=== PATIENT | female | born 1950 | race Caucasian/White ===

== ENCOUNTER → 2016-08-06 | Day surgery (SDC) | payer MEDICARE, OTHER ==
[~2016-08-06] VITALS: Ht 162.6 cm; Wt 105.2 kg
[~2016-08-06] MED LIST: AZITHROMYCIN 2250 MG PO; CEFDINIR300 MG PO; HCTZ25 MG PO; LASIX40 MG PO; METFORMIN HCL500 MG PO; METRONIDAZOLE500 MG PO; NEURONTIN400 MG PO; XANAX0.5 MG PO
== END | disposition home or self-care (01) ==
LOC: FAS 06:12
PROVIDERS: Anesthesiology
DX: Z12.11 Encounter for screening for malignant neoplasm of colon (principal); K63.5 Polyp of colon; K57.30 Diverticulosis of large intestine without perforation or abscess without bleeding; K21.9 Gastro-esophageal reflux disease without esophagitis; I10 Essential (primary) hypertension; E11.9 Type 2 diabetes mellitus without complications; E78.00 Pure hypercholesterolemia, unspecified; G40.909 Epilepsy, unspecified, not intractable, without status epilepticus; M32.9 Systemic lupus erythematosus, unspecified; M10.9 Gout, unspecified; G47.30 Sleep apnea, unspecified; F41.9 Anxiety disorder, unspecified; Z99.89 Dependence on other enabling machines and devices; Z90.710 Acquired absence of both cervix and uterus; Z90.722 Acquired absence of ovaries, bilateral; Z80.0 Family history of malignant neoplasm of digestive organs; Z86.73 Personal history of transient ischemic attack (TIA), and cerebral infarction without residual deficits; Z87.891 Personal history of nicotine dependence; Z79.84 Long term (current) use of oral hypoglycemic drugs; Z79.818 Long term (current) use of other agents affecting estrogen receptors and estrogen levels; Z79.899 Other long term (current) drug therapy; Z98.890 Other specified postprocedural states
CPT/HCPCS: 36415; 80048; 88305; J2704

== ENCOUNTER 2020-08-20 11:13 | Inpatient (IN) | payer MEDICARE, OTHER ==
[~2020-08-20] VITALS: Ht 162.6 cm; Wt 106.3 kg
[~2020-08-20 11:13] MED LIST changes: +ALLOPURINOL100 MG PO; +AUGMENTIN 875-1 EACH PO; +CARDIZEM CD120 MG PO; +DOXYCYCLINE HY100 M2 PO; +ELIQUIS5 MG PO; +ESTRACE1 MG PO; +KEPPRA500 MG PO; +LEVAQUIN750 MG PO; +MUCINEX; +PREDNISONE 10MG10 MG PO; +PRINIVIL10 MG PO; +TYLENOL #31 EACH PO; +VITAMIN D50000 UNIT PO; +XANAX1 MG PO; +ZOCOR20 MG PO
[2020-08-20 11:55] LABS: BASOPHIL 0.6 % (0-2); EOSINOPHIL 1.2 % (0-7); HCT 40.1 % (37.0-47.0); HGB 12.8 g/dl (12.5-16.0); MCHC 31.9 g/dL (32.0-36.0); MCV 84.6 fL (78.0-100.0); MONOCYTE 5.6 % (0-12); MPV 9.6 fL (6.0-9.5); NEUTROPHIL 54.8 % (41-80); NRBC 0; PLT 328 K/uL (150-400); RBC 4.74 M/uL (4.20-5.40); RDW 16.2 % (11.5-14.0); WBC 13.1 K/uL (4.0-10.5)
[2020-08-20 12:03] LABS: ALBUMIN 3.8 g/dL (3.4-5.0); BILIRUBIN - TOTAL 0.2 mg/dL (0.2-1.0); BUN/CREAT RATIO (CALC) 13.8 RATIO; CREATININE 0.8 mg/dL (0.51-0.95); GLOBULIN (CALCULATION) 3.8 g/dL; POTASSIUM 4.6 mmol/L (3.5-5.1); TOTAL PROTEIN 7.6 g/dL (6.4-8.2)
[2020-08-20 12:13] LABS: LACTIC ACID 2.4 mmol/L (0.4-1.9)
[2020-08-20 12:46] LABS: CORONAVIRUS 2019 SARS-COV-2 NEGATIVE (NEGATIVE); INFLUENZA A NAA NEGATIVE (NEGATIVE)
[2020-08-20] MEDS ORDERED: PRINIVIL20 MG PO (17:57)
[2020-08-20] MEDS ORDERED: DOXYCYCLINE MON50 MG PO (17:59)
[2020-08-20] MEDS ORDERED: ZOCOR20 MG PO (18:01)
[2020-08-20] MEDS ORDERED: PHENERGAN25 M1 PO (18:03)
[2020-08-20] MEDS ORDERED: BROVANA15 MCG/2 M INH (18:06)
[2020-08-20] MEDS ORDERED: VENTOLIN (2.5 MG/3 M INH (18:08)
[2020-08-20] MEDS ORDERED: IPRAT-ALBUT 0.5-3 ML INH (18:14)
[2020-08-21 05:36] LABS: BASOPHIL 0.1 % (0-2); EOSINOPHIL 0 % (0-7); HGB 12.7 g/dl (12.5-16.0); LYMPHOCYTE 9.9 % (15-48); MCH 27.5 pg (25.0-31.0); MCHC 33.4 g/dL (32.0-36.0); MCV 82.3 fL (78.0-100.0); MPV 9.6 fL (6.0-9.5); NEUTROPHIL 88.2 % (41-80); NRBC 0; PLT 307 K/uL (150-400); RBC 4.62 M/uL (4.20-5.40); WBC 15.9 K/uL (4.0-10.5)
[2020-08-21 06:26] LABS: BUN/CREAT RATIO (CALC) 24.6 RATIO; CREATININE 0.69 mg/dL (0.51-0.95)
--- NOTE | 2020-08-21 14:50 | NUR ---
MET WITH PT. TO DISCUSS NEEDS. PT. HAS A C-PAP, PERCUSSION VEST, RW, SHOWER SEAT. PT. HAS HAD [facility] IN THE PAST AND WOULD LIKE THEM AGAIN. PT. DOES NOT USE HOME O2. SHE HAS A RAMP. HER PRIMARY IS DR. ARMIJO AND HER FRAME HAND IS DR. JOSUE IN [place]. PT. HAS A NEUBLIZER. SHE RESIDES WITH SPOUSE, SON AND DAUGHTER. PT. WOULD LIKE A 04/21.
--- NOTE | 2020-08-21 20:42 | NUR ---
RAPID RESPONSE CALLED AT 1935 DUE TO PT HAVING TROUBLE BREATHING, AND UNABLE TO CATCH BREATH. PT GASPING FOR AIR. PT WAS ON ROOM AIR WHEN ARRIVED TO ROOM. PT WAS IN NO DISTRESS AT TIME OF SHIFT CHANGE AT 1900. PULSE OX OBTAINED, PT 94% ON 2 LITERS. STRIDOR NOTICED PATIENT BECAME MORE ANXIOUS. CONSUMER LOAN OFFICER BREANA MARTINEZ CALLED TO BEDSIDE. ATIVAN AND COMPAZINE ORDERED AND GIVEN. RESPIRATORY THERAPY AT BEDSIDE, MULTIPLE BREATHING TREATMENTS GIVEN, INCLUDING RACEMIC EPI. PT STABALIZED AND SLEEPING. ORDERS TO TRANSFER TO TCU.
[2020-08-22 06:28] LABS: BASOPHIL 0.2 % (0-2); EOSINOPHIL 0 % (0-7); HCT 35.6 % (37.0-47.0); HGB 11.7 g/dl (12.5-16.0); LYMPHOCYTE 2.8 % (15-48); MCH 27.5 pg (25.0-31.0); MCHC 32.9 g/dL (32.0-36.0); MCV 83.6 fL (78.0-100.0); MPV 9.9 fL (6.0-9.5); PLT 308 K/uL (150-400); RBC 4.26 M/uL (4.20-5.40); RDW 16.6 % (11.5-14.0); WBC 22.2 K/uL (4.0-10.5)
[2020-08-22 06:34] LABS: NEUTROPHIL 90.7 % (41-80)
[2020-08-22 06:52] LABS: CREATININE 0.79 mg/dL (0.51-0.95); MAGNESIUM 2.1 mg/dL (1.8-2.4); PHOSPHORUS 3.2 mg/dL (2.6-4.7); POTASSIUM 4.5 mmol/L (3.5-5.1)
[2020-08-22 07:02] LABS: BAND 4 % (0-10); LYMPHOCYTE(M) 5 % (15-48); METAMYELOCYTE 1; MONOCYTE(M) 2 % (0-12); NEUTROPHILS(M) 88 % (41-80); TOTAL CELL COUNT 100
[2020-08-22 07:03] LABS: PLATELET ESTIMATE NORMAL; PLATELET MORPHOLOGY NORMAL
[2020-08-22 07:04] LABS: NRBC 0
--- NOTE | 2020-08-22 10:00 | NUR ---
1000- pt hollered out help me, was coughing severly with productive sputumn, face was flushed, stridor and wheezing was heard throughout lung bob, pt heart rate became tachy in the 140's. rt was called and checked o2 level of pt. o2 level was 94% on 4 l o2. md was notified and ordered racepinephrine nebulizer and oulmicort nebulizer, md also ordered 5 mg valium iv. after interventions pt coughing decreased and appeared relaxed. rt placed pt in percussion vest. pt is sitting in chair with at bedside at this time. no distress noted.
[2020-08-23 04:34] LABS: BASOPHIL 0.2 % (0-2); EOSINOPHIL 0 % (0-7); HCT 35.6 % (37.0-47.0); HGB 11.7 g/dl (12.5-16.0); LYMPHOCYTE 3.7 % (15-48); MCH 27.3 pg (25.0-31.0); MCHC 32.9 g/dL (32.0-36.0); MPV 9.6 fL (6.0-9.5); NRBC 0; PLT 315 K/uL (150-400); RBC 4.29 M/uL (4.20-5.40); RDW 16.6 % (11.5-14.0); WBC 26.5 K/uL (4.0-10.5)
[2020-08-23 04:37] LABS: NEUTROPHIL 86.7 % (41-80)
[2020-08-23 05:10] LABS: BUN/CREAT RATIO (CALC) 46.5 RATIO; CREATININE 0.71 mg/dL (0.51-0.95); PHOSPHORUS 3.1 mg/dL (2.6-4.7); POTASSIUM 4.1 mmol/L (3.5-5.1)
--- NOTE | 2020-08-24 00:16 | NUR ---
PATIENT BECAME MORE SOA, BARKY COUGH. RALES/EXP WHEEZES IN UPPER LOBES HARSH STRIDOROUS WHEEZE IN UPPER AIRWAY/THROAT. PATIENT MAINTAINING SAT APPROPRIATLY ON HOME CPAP. JACINTA HYDE AWARE. RACEMIC EPI PRN GIVEN AT THIS TIME
[2020-08-24 04:14] LABS: BASOPHIL 0.3 % (0-2); EOSINOPHIL 0 % (0-7); HCT 36.2 % (37.0-47.0); HGB 12.1 g/dl (12.5-16.0); LYMPHOCYTE 4.7 % (15-48); MCH 27.4 pg (25.0-31.0); MCHC 33.4 g/dL (32.0-36.0); MCV 81.9 fL (78.0-100.0); MONOCYTE 5.6 % (0-12); MPV 9.9 fL (6.0-9.5); NRBC 0; PLT 316 K/uL (150-400); RBC 4.42 M/uL (4.20-5.40); RDW 16.3 % (11.5-14.0); WBC 17.4 K/uL (4.0-10.5)
[2020-08-24 04:16] LABS: NEUTROPHIL 82.2 % (41-80)
[2020-08-24 04:30] LABS: BUN/CREAT RATIO (CALC) 51.4 RATIO; CREATININE 0.74 mg/dL (0.51-0.95); POTASSIUM 3.8 mmol/L (3.5-5.1)
[2020-08-25 06:03] LABS: BASOPHIL 0.4 % (0-2); EOSINOPHIL 0 % (0-7); HCT 35.2 % (37.0-47.0); HGB 11.7 g/dl (12.5-16.0); MCH 27.3 pg (25.0-31.0); MCHC 33.2 g/dL (32.0-36.0); MCV 82.2 fL (78.0-100.0); MONOCYTE 4.8 % (0-12); MPV 9.9 fL (6.0-9.5); NEUTROPHIL 84.1 % (41-80); NRBC 0; PLT 287 K/uL (150-400); RBC 4.28 M/uL (4.20-5.40); RDW 16.2 % (11.5-14.0); WBC 18.2 K/uL (4.0-10.5)
[2020-08-25 06:09] LABS: BUN/CREAT RATIO (CALC) 47.9 RATIO; CREATININE 0.71 mg/dL (0.51-0.95); MAGNESIUM 2.2 mg/dL (1.8-2.4); POTASSIUM 4.4 mmol/L (3.5-5.1)
[2020-08-26 05:43] LABS: HCT 35.8 % (37.0-47.0); MCH 27.6 pg (25.0-31.0); MCHC 33.5 g/dL (32.0-36.0); MCV 82.5 fL (78.0-100.0); MPV 10.1 fL (6.0-9.5); RBC 4.34 M/uL (4.20-5.40); RDW 15.8 % (11.5-14.0); WBC 21.5 K/uL (4.0-10.5)
[2020-08-26 06:23] LABS: BUN/CREAT RATIO (CALC) 52.2 RATIO; CREATININE 0.69 mg/dL (0.51-0.95); POTASSIUM 4.7 mmol/L (3.5-5.1)
--- NOTE | 2020-08-26 12:31 | NUR ---
1225 PT BLOOD SUGAR WAS 528 DR RILEY NOTIFIED OF HIGH BS. INSULIN 10 UNITS ALREADY GETTING THIS, HE ORDERED AN ADDITIONAL 10 UNITS NOW.
--- NOTE | 2020-08-26 16:29 | NUR ---
1629 PT BLOOD SUGAR IS 461, DR RILEY NOTIFIED ORDERED FOR 15 UNITS RECIEVED.
[2020-08-28 06:00] LABS: HCT 37.6 % (37.0-47.0); HGB 12.4 g/dl (12.5-16.0); MCH 27.2 pg (25.0-31.0); MCV 82.5 fL (78.0-100.0); MPV 10.5 fL (6.0-9.5); RBC 4.56 M/uL (4.20-5.40); RDW 15.8 % (11.5-14.0); WBC 23.6 K/uL (4.0-10.5)
[2020-08-28 06:10] LABS: BUN/CREAT RATIO (CALC) 43.5 RATIO; CREATININE 0.69 mg/dL (0.51-0.95); POTASSIUM 4.7 mmol/L (3.5-5.1)
--- NOTE | 2020-08-28 22:32 | NUR ---
AT 2200 EMS HERE TO MENTAL RETARDATION AIDE PT TO TRANSFER TO [facility],PT LEFT PER STRETCHER AND 2 EMS PERSONAL,IN STABLE CONDITION,NO S/S OF DISTRESS OR DISCOMFORT NOTED,PERSONAL BELONGINGS ALONG WITH HOME CPAP SENT WITH PT
--- NOTE | 2020-08-29 16:33 | NUR ---
08/29/20 [facility] was notified of transfer to [facility] on 08/28/20.
== END 2020-08-28 21:48 | disposition other institution (70) | DRG 871 ==
LOC: FER 11:13 → FMS 16:12 → FTCU 08-21 20:19 → FMS 08-28 12:34 → FTCU 08-28 19:02
PROVIDERS: Emergency Medicine; Hospitalist; Nurse Practitioner; ADMIT Internal Medicine
DX: A41.02 Sepsis due to Methicillin resistant Staphylococcus aureus (principal); J15.6 Pneumonia due to other Gram-negative bacteria; J15.212 Pneumonia due to Methicillin resistant Staphylococcus aureus; J96.01 Acute respiratory failure with hypoxia; E87.2 Acidosis; J44.1 Chronic obstructive pulmonary disease with (acute) exacerbation; J44.0 Chronic obstructive pulmonary disease with (acute) lower respiratory infection; E66.2 Morbid (severe) obesity with alveolar hypoventilation; I69.854 Hemiplegia and hemiparesis following other cerebrovascular disease affecting left non-dominant side; J98.11 Atelectasis; A41.59 Other Gram-negative sepsis; R65.20 Severe sepsis without septic shock; Z20.822 Contact with and (suspected) exposure to COVID-19; J20.9 Acute bronchitis, unspecified; M32.9 Systemic lupus erythematosus, unspecified; I50.9 Heart failure, unspecified; K21.9 Gastro-esophageal reflux disease without esophagitis; E78.5 Hyperlipidemia, unspecified; I10 Essential (primary) hypertension; Z86.16 Personal history of COVID-19; Z86.711 Personal history of pulmonary embolism; Z90.710 Acquired absence of both cervix and uterus; Z98.890 Other specified postprocedural states; Z87.891 Personal history of nicotine dependence; Z79.01 Long term (current) use of anticoagulants; Z79.899 Other long term (current) drug therapy; Z68.39 Body mass index [BMI] 39.0-39.9, adult
CPT/HCPCS: 36415; 36600; 71045; 71250; 71275; 80048; 80053; 80202; 82150; 82803; 82962; 83605; 83735; 83880; 84100; 84145; 84484; 85025; 87040; 87070; 87077; 87088; 87186; 87205; 93005; 94010; 94640; 94660; 94664; 94667; 94668; 96374; J0456; J0696; J0780; J2020; J2060; J2543; J2930; J3360; J7050; Q9967; U0002

== ENCOUNTER 2020-09-15 22:34 | Emergency (ER) | payer MEDICARE, OTHER ==
[~2020-09-15 22:34] MED LIST changes: +BROVANA15 MCG/2 M INH; +DOXYCYCLINE MON50 MG PO; +IPRAT-ALBUT 0.5-3 ML INH; +PHENERGAN25 M1 PO; +PRINIVIL20 MG PO; +VENTOLIN (2.5 MG/3 M INH
[2020-09-16 00:53] LABS: BASOPHIL 0.3 % (0-2); EOSINOPHIL 1.5 % (0-7); HCT 36.4 % (37.0-47.0); HGB 11.5 g/dl (12.5-16.0); LYMPHOCYTE 37.5 % (15-48); MCH 27.2 pg (25.0-31.0); MCHC 31.6 g/dL (32.0-36.0); MCV 86.1 fL (78.0-100.0); MONOCYTE 11.2 % (0-12); MPV 9.1 fL (6.0-9.5); NEUTROPHIL 48.8 % (41-80); NRBC 0; PLT 514 K/uL (150-400); RBC 4.23 M/uL (4.20-5.40); RDW 15.7 % (11.5-14.0); WBC 7.5 K/uL (4.0-10.5)
[2020-09-16 01:17] LABS: ALBUMIN 3.1 g/dL (3.4-5.0); BILIRUBIN - TOTAL 0.2 mg/dL (0.2-1.0); BUN/CREAT RATIO (CALC) 18.4 RATIO; CREATININE 0.76 mg/dL (0.51-0.95); GLOBULIN (CALCULATION) 3.9 g/dL; POTASSIUM 4.2 mmol/L (3.5-5.1)
[2020-09-16] MEDS ORDERED: AUGMENTIN 875-1 EACH PO (07:45)
== END 2020-09-16 07:57 | disposition home or self-care (01) ==
LOC: FER 22:34
PROVIDERS: Emergency Medicine
DX: R06.00 Dyspnea, unspecified (principal); R05 Cough; M79.89 Other specified soft tissue disorders; I10 Essential (primary) hypertension; J44.9 Chronic obstructive pulmonary disease, unspecified; F41.9 Anxiety disorder, unspecified; Z20.822 Contact with and (suspected) exposure to COVID-19; Z79.899 Other long term (current) drug therapy
CPT/HCPCS: 36415; 71045; 71275; 80053; 84484; 85025; 85379; 93971; 94640; 94664; J7030; Q9967; U0002

== ENCOUNTER 2021-07-20 10:07 | Emergency (ER) | payer MEDICARE, OTHER ==
[2021-07-20] MEDS ORDERED: AMOX TR-K CLV1 EAC4 PO (10:30)
== END 2021-07-20 10:59 | disposition home or self-care (01) ==
LOC: FER 10:07
DX: S61.452A Open bite of left hand, initial encounter (principal); S61.451A Open bite of right hand, initial encounter; Z23 Encounter for immunization; W54.0XXA Bitten by dog, initial encounter; Y93.K9 Activity, other involving animal care
CPT/HCPCS: 90471; 90715

== ENCOUNTER 2021-10-05 02:28 | Emergency (ER) | payer MEDICARE, OTHER ==
[~2021-10-05 02:28] MED LIST changes: +AMOX TR-K CLV1 EAC4 PO; +PULMICORT0.5 MG/2 M INH
[2021-10-05 03:52] LABS: BASOPHIL 0.6 % (0-2); EOSINOPHIL 1.5 % (0-7); HCT 37.3 % (37.0-47.0); HGB 12.1 g/dl (12.5-16.0); INR 1.02 (0.9-1.2); LYMPHOCYTE 31.5 % (15-48); MCH 29.1 pg (25.0-31.0); MCHC 32.4 g/dL (32.0-36.0); MCV 89.7 fL (78.0-100.0); MONOCYTE 7.6 % (0-12); MPV 9.8 fL (6.0-9.5); NEUTROPHIL 57.7 % (41-80); NRBC 0; PLT 241 K/uL (150-400); PROTHROMBIN TIME 13.1 SECONDS (11.9-13.9); RBC 4.16 M/uL (4.20-5.40); RDW 13.4 % (11.5-14.0)
[2021-10-05 03:53] LABS: PTT 30.9 SECONDS (24.9-34.6)
[2021-10-05 04:07] LABS: ALBUMIN 3.7 g/dL (3.4-5.0); BILIRUBIN - TOTAL 0.2 mg/dL (0.2-1.0); BUN/CREAT RATIO (CALC) 19.8 RATIO; CORONAVIRUS 2019 SARS-COV-2 NEGATIVE (NEGATIVE); CREATININE 0.86 mg/dL (0.51-0.95); GLOBULIN (CALCULATION) 2.8 g/dL; INFLUENZA A NAA NEGATIVE (NEGATIVE); POTASSIUM 3.8 mmol/L (3.5-5.1); TOTAL PROTEIN 6.5 g/dL (6.4-8.2)
== END 2021-10-05 07:05 | disposition home or self-care (01) ==
LOC: FER 02:28
PROVIDERS: Internal Medicine
DX: J44.9 Chronic obstructive pulmonary disease, unspecified (principal); I71.2 Thoracic aortic aneurysm, without rupture; R42 Dizziness and giddiness; Z20.822 Contact with and (suspected) exposure to COVID-19
CPT/HCPCS: 36415; 71250; 80053; 83880; 84145; 84484; 85025; 85610; 85730; 93005; Q9967; U0002